=== PATIENT | male | born 1960 | race Caucasian/White ===

== ENCOUNTER 2020-06-05 18:08 | Emergency (ER) | payer BC ==
[~2020-06-05] VITALS: Ht 180.3 cm; Wt 87.1 kg
[2020-06-05 21:04] LABS: ABSOLUTE NEUTROPHILS 4.7 thou/uL (1.4-8.2); BASOPHILS 0.4 % (0.0-2.0); EOSINOPHILS 0.1 % (0.0-3.0); HEMATOCRIT 45.9 % (42.0-52.0); HEMOGLOBIN 15.8 gm/dL (14.0-18.0); LYMPHOCYTES 7.5 % (24.0-44.0); MCH 32.1 pg (26.0-34.0); MCHC 34.5 g/dL (28.0-37.0); MCV 93.2 fL (80.0-100.0); PLATELET COUNT 107 thou/uL (150-400); RBC 4.93 mil/uL (4.50-6.00); RDW 13.5 % (10.5-14.5); WBC 5.4 thou/uL (4.0-11.0)
[2020-06-05 21:08] LABS: CALCIUM 9.1 mg/dL (8.5-10.1); CREATININE 0.9 mg/dL (0.7-1.3); POTASSIUM 4.6 mmol/L (3.5-5.1)
[2020-06-05 21:14] LABS: ALBUMIN 4.1 g/dL (3.4-5.0); DIRECT BILIRUBIN 0.1 mg/dL (<0.1-0.2); TOTAL BILIRUBIN 0.9 mg/dL (0.2-1.0); TOTAL PROTEIN 7.8 g/dL (6.4-8.2)
[2020-06-05] MEDS ORDERED: SERTRALINE HCL100 MG PO (22:22)
[2020-06-05] MEDS ORDERED: LISINOPRIL2.5 MG PO (22:22)
[2020-06-05] MEDS ORDERED: AMBIEN CR 6.26.25 MG PO (22:23)
[2020-06-05] MEDS ORDERED: ZOFRAN ODT4 MG PO (23:09)
[2020-06-06 00:11] VITALS: BP 134/74
== END 2020-06-06 00:11 | disposition home or self-care (01) ==
LOC: ER 18:08 → EDBD 18:08 → ER 06-06 00:11
PROVIDERS: Emergency Medicine
DX: U07.1 COVID-19 (principal); Z79.899 Other long term (current) drug therapy; Z88.0 Allergy status to penicillin; Z88.8 Allergy status to other drugs, medicaments and biological substances